=== PATIENT | female | born 1940 | race Caucasian/White ===

== ENCOUNTER 2020-02-16 12:20 | Inpatient (IN) | payer MEDICARE, OTHER ==
[~2020-02-16] VITALS: Ht 152.4 cm; Wt 68.0 kg
[~2020-02-16 12:20] MED LIST: CLON0.2T MT; EXEN5PEN2 SQ; GLIP5TAB13 PO
--- NOTE | 2020-02-16 12:20 | NUR ---
PT SENT BY C/O R LOWER EXTREMITY CELLULITIS. PT IS AAOX4, NOT IN RESPIRATORY DISTRESS, HOOKED TO MONITOR, KEPT RESTED AND COMFORTABLE. WILL CONTINUE TO MONITOR.
--- NOTE | 2020-02-16 12:33 | NUR ---
PT SEEN AND EXAMINED BY .
--- NOTE | 2020-02-16 12:40 | NUR ---
IV LINE ESTABLISHED BLOOD DRAWN AND SENT TO LAB.
--- NOTE | 2020-02-16 12:43 | NUR ---
WOUND CULTURE SPECIMEN OBTAINED AND SENT TO LAB.
[2020-02-16 12:46] LABS: BASOPHILS % (AUTO) 0.5 % (0.0-2.0); HEMATOCRIT 41 % (33-45); HEMOGLOBIN 13.3 g/dL (11.5-14.8); LYMPHOCYTES # (AUTO) 2.6 /CMM (0.8-4.8); LYMPHOCYTES % (AUTO) 29.6 % (20.0-44.0); MEAN CORPUSCULAR HGB CONC 33 g/dl (31.0-36.0); MEAN CORPUSCULAR VOLUME 93 fL (82-100); MONOCYTES # (AUTO) 0.5 /CMM (0.1-1.30); MONOCYTES % (AUTO) 5.2 % (2.0-12.0); NEUTROPHILS # (AUTO) 5.6 /CMM (1.8-8.9); NEUTROPHILS % (AUTO) 63.7 % (43.0-81.0); PLATELET COUNT (AUTO) 238 /CMM (150-450); RED BLOOD CELL COUNT(AUTO) 4.34 MIL/uL (4.0-5.2); WHITE BLOOD COUNT (AUTO) 8.8 K/uL (4.3-11.0)
--- NOTE | 2020-02-16 12:51 | NUR ---
COVID SPECIMEN OBTAINED AND SENT TO LAB.
--- NOTE | 2020-02-16 12:54 | NUR ---
PRINCIPAL ARCHITECTURAL FIRM AT BEDSIDE FOR XRAY.
[2020-02-16] MEDS ORDERED: PIPERACILLIN /TAZOBACTAM 3.375 G in IV D5W 50 ML IV ONE (13:00)
[2020-02-16] MEDS ORDERED: VANCOMYCIN 1 GM in IV D5W 250 ML IV ONE (13:00)
--- NOTE | 2020-02-16 13:00 | NUR ---
PAGED DR. CAPONE.
[2020-02-16 13:02] LABS: ALANINE AMINOTRANSFERASE 25 U/L (12-78); ALBUMIN 3.7 g/dL (3.4-5.0); ALKALINE PHOSPHATASE 57 U/L (46-116); ASPARTATE AMINOTRANSFERASE 17 U/L (15-37); BILIRUBIN,DIRECT 0.1 mg/dL (0.0-0.2); BILIRUBIN,TOTAL 0.5 mg/dL (0.2-1.0); CALCIUM, SERUM 9.6 mg/dL (8.5-10.1); CARBON DIOXIDE 26 mmol/L (21-32); CHLORIDE 105 mmol/L (98-107); CREATININE 0.7 mg/dL (0.6-1.3); GLUCOSE 131 mg/dL (74-106); POTASSIUM 3.8 mmol/L (3.5-5.1); SODIUM SERUM 140 mmol/L (136-145); TOTAL PROTEIN, SERUM 7.5 g/dL (6.4-8.2); UREA NITROGEN, BLOOD 15 mg/dL (7-18)
--- NOTE | 2020-02-16 13:16 | NUR ---
CALLED NURSING SUP FOR M/S BED.
--- NOTE | 2020-02-16 13:52 | NUR ---
NURSING SUP GAVE M/S BED 327-2.
--- NOTE | 2020-02-16 13:56 | NUR ---
REPORT GIVEN TO MAAME HUTSON FOR DAVID.
[2020-02-16 14:30] VITALS: BP 177/86
--- NOTE | 2020-02-16 15:17 | NUR ---
RN ADMITTING NOTE Patient arrived around 1430 by gil. A/O x4, showing no signs of acute distress or SOB, saturating >95% on RA. Skin assessed, photos taken and placed in chart. RLE edema and redness present, bilateral pulses present, patient able to move lower extremities. VS BP 177/86 HR71 T 97.3F RR 18. Patient has no complaints of pain at this time. Patient's family will bring medication list later this evening. Called Dr. Hutchinson and received telephone orders. Orders repeated back to MD and will carry out orders. Charge nurse made aware. Patient remains stable, bed is in lowest position, side rails x3 in upright position, call light is within reach, fall safety and aspiration precautions enforced. Will continue with admitting process. 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
[2020-02-16] MEDS ORDERED: VANCOMYCIN HCL 1 GM in IV D5W 260 ML IV ONE (15:30)
[2020-02-16] MEDS ORDERED: DEXTROSE 50%-WATER 50 ML DISP.SYRIN IV PRN (15:30)
[2020-02-16] MEDS ORDERED: *INSULIN REGULAR(HUMULIN R)HUM 100 UNIT/ML VIAL SQ PRN (15:30)
[2020-02-16 16:00] VITALS: BP 143/66
[2020-02-16] MEDS ORDERED: BUMETANIDE (1 MG) 1 MG TABLET PO ONE ×2 (16:00→21:00)
[2020-02-16] MEDS: NIFEdipine XL (30MG) 30 MG TAB PO SCH (16:09)
[2020-02-16 16:16] LABS: MAGNESIUM 1.9 mg/dL (1.8-2.4); THYROID STIMULATING HORMONE 1.274 uIU/mL (0.358-3.74)
[2020-02-16 16:43] VITALS: BP 143/66
[2020-02-16] MEDS: BLOOD SUGAR DIAGNOSTIC 1 EACH STRIP VI SCH ×2 (17:20→21:19)
[2020-02-16] MEDS: INSULIN REGULAR, HUMAN 100 UNIT/ML 3 ML VIAL SQ PRN ×2 (17:20→21:11)
--- NOTE | 2020-02-16 17:21 | NUR ---
RN NOTE Non-admin insulin per protocol. BS 100.
--- NOTE | 2020-02-16 18:00 | NUR ---
RN NOTE Patient's brought home medications. Given to med-recon nurse Sofia, and meds brought to pharmacy.
[2020-02-16] MEDS ORDERED: CLOP75TA15 MT (18:07)
[2020-02-16] MEDS ORDERED: CAPT50TA3 PO (18:07)
[2020-02-16] MEDS ORDERED: TYL2T MT (18:07)
[2020-02-16] MEDS ORDERED: GABA-532 MT (18:07)
[2020-02-16] MEDS ORDERED: GLIM2TAB31 PO (18:07)
--- NOTE | 2020-02-16 18:11 | NUR ---
RN CLOSING NOTE Patient is resting in bed, A/O x4, showing no signs of acute distress or SOB, stable on RA. IV line in the right hand #18g is clean and intact flushing well s/l. RLE elevated. All patient needs met, all due medications given, patient kept clean and dry throughout shift, fall safety and aspiration precautions enforced. Will endorse to rn night for DAVID.
[2020-02-16 18:37] LABS: APPEARANCE,URINE CLEAR (CLEAR); BILIRUBIN,URINE NEGATIVE (NEGATIVE); BLOOD, URINE TRACE Ery/uL (NEGATIVE); COLOR,URINE YELLOW (YELLOW); KETONES,URINE NEGATIVE (NEGATIVE); LEUKOCYTE ESTERASE ,URINE NEGATIVE (NEGATIVE); NITRITE, URINE NEGATIVE (NEGATIVE); PH,URINE 5.5 (5.0-8.0); PROTEIN,URINE NEGATIVE (NEGATIVE); UGLUCOSE NEGATIVE (NEGATIVE); UROBILINOGEN,URINE 0.2 EU/dL (0.2)
[2020-02-16 18:43] LABS: BACTERIA,URINE None seen /HPF (None Seen); WBC,URINE 0-2 /HPF (0-3)
[2020-02-16 20:00] VITALS: BP 136/75
[2020-02-16] MEDS ORDERED: BUMETANIDE (1 MG) 1 MG TABLET PO SCH (21:00)
[2020-02-16 21:40] VITALS: BP 136/75
--- NOTE | 2020-02-16 21:49 | NUR ---
MS/RN OPENING NOTE Patient awake in bed, A/O x4, ambulatory. Breathing even, clear, unlabored, on room air satting 95%. No signs of acute distress or SOB. Skin is warm, pink, dry, appropriate for ethnicity. Redness present on right lower extremity. Bilateral lower extremity non-pitting edema present. Numbness noted in bilateral toes. Patient denies pain. Afebrile. Bowel sounds normoactive, in all quadrants. Abdomen soft, round, non-distended. Patient void via BRP, clear yellow urine. IV site right hand 18g, patent and intact, saline locked. No signs of redness or infiltration. Bed in low position, wheels locked, side rails up x2, call light within reach.
[2020-02-16] MEDS ORDERED: CEFTRIAXONE 1 G VIAL ONE (23:26)
[2020-02-16] MEDS: CEFTRIAXONE 2 G in IV D5W 100 ML IV SCH (23:30)
[2020-02-17] MEDS: VANCOMYCIN HCL 0.75 GM in IV D5W 250 ML IV SCH ×2 (01:05→13:10)
--- NOTE | 2020-02-17 05:07 | NUR ---
MS/RN CLOSING NOTE Patient asleep in bed, A/O x4, ambulatory. Breathing even, clear, unlabored, on room air satting 95%. No signs of acute distress or SOB. Skin is warm, pink, dry, appropriate for ethnicity. Bowel sounds normoactive, in all quadrants. Abdomen soft, round, non-distended. No bowel movement this shift. Patient void via BRP x3, clear yellow urine. IV site right hand 18g, patent and intact, saline locked. No signs of redness or infiltration. All medications administered as ordered. Bed in low position, wheels locked, side rails up x2, call light within reach. Will endorse to oncoming nurse.
--- NOTE | 2020-02-17 05:49 | NUR ---
MS/RN NOTE Patient complaint of pain in right leg level 9, unable to sleep. Notified hospitalist for pain medication order. New med order for toradol 10mg PO once. Overrided eMar allergy conflict per hospitalist. MD is aware that patient is allergic to codeine and aspirin. Will continue to monitor.
[2020-02-17] MEDS ORDERED: KETOROLAC TROMETHAMINE 10 MG TABLET PO PRN (06:00)
[2020-02-17] MEDS: INSULIN REGULAR, HUMAN 100 UNIT/ML 3 ML VIAL SQ PRN ×3 (06:27→21:15)
[2020-02-17] MEDS: BLOOD SUGAR DIAGNOSTIC 1 EACH STRIP VI SCH ×4 (06:32→21:13)
[2020-02-17 07:06] LABS: BASOPHILS # (AUTO) 0.1 /CMM (0.0-0.2); BASOPHILS % (AUTO) 0.9 % (0.0-2.0); HEMATOCRIT 42 % (33-45); HEMOGLOBIN 14.1 g/dL (11.5-14.8); LYMPHOCYTES # (AUTO) 1.6 /CMM (0.8-4.8); LYMPHOCYTES % (AUTO) 21.6 % (20.0-44.0); MEAN CORPUSCULAR HGB CONC 33 g/dl (31.0-36.0); MEAN CORPUSCULAR VOLUME 91 fL (82-100); MONOCYTES # (AUTO) 0.5 /CMM (0.1-1.30); MONOCYTES % (AUTO) 6.5 % (2.0-12.0); NEUTROPHILS # (AUTO) 5.1 /CMM (1.8-8.9); PLATELET COUNT (AUTO) 247 /CMM (150-450); RED BLOOD CELL COUNT(AUTO) 4.65 MIL/uL (4.0-5.2); WHITE BLOOD COUNT (AUTO) 7.3 K/uL (4.3-11.0)
--- NOTE | 2020-02-17 07:10 | NUR ---
M/S RN OPENING NOTES RECEIVED PT ON BED, A/OX4, RESPONSIVE TO ALL STIMULI. RESPIRATION EVEN AND NON LABORED WITH NO ACUTE RESPIRATORY DISTRESS, ON RA. ABD SOFT AND NON DISTENDED WITH ACTIVE BOWEL SOUNDS. PT C/O 9/10 PAIN ON BLE, ELEVATE TOLERATED, EDEMA +1, MD TO CALL FOR NEW ORDER. SKIN WARM TO TOUCH AND DRY. IV SITE AT RIGHT HAND PATENT IN FLUSHING, NO S/SX OF INFILTRATION. CALL LIGHT WITHIN REACH, BED IN LOW LOCKED POSITION, SR X2 UP FOR SAFETY, WILL CONTINUE TO MONITOR CARE
[2020-02-17 07:37] LABS: CALCIUM, SERUM 9.2 mg/dL (8.5-10.1); CREATININE 0.7 mg/dL (0.6-1.3); POTASSIUM 3.3 mmol/L (3.5-5.1)
[2020-02-17 08:12] VITALS: BP 131/76
[2020-02-17] MEDS: BUMETANIDE (1 MG) 1 MG TABLET PO SCH (08:44)
[2020-02-17] MEDS: NIFEdipine XL (30MG) 30 MG TAB PO SCH (08:44)
[2020-02-17] MEDS: ENALAPRIL MALEATE (5 MG) 5 MG TABLET PO SCH (08:45)
[2020-02-17] MEDS: ENOXAPARIN SODIUM 40 MG/0.4 ML DISP.SYRIN SQ SCH (08:48)
--- NOTE | 2020-02-17 08:53 | NUR ---
M/S RN NOTES PT SEEN AND EVALUATED BY DR. CAPONE. OBTAINED NEW ORDER FOR PAIN MEDICATION - TYLENOL ES 500 MG TAB PO Q6 PRN AND NORCO 5/325 MG TAB PO Q6 PRN. ORDER READ BACK NOTED AND CARRIED OUT. MD AWARE OF ALLERGIES. WILL CONTINUE TO MONITOR CARE
[2020-02-17] MEDS ORDERED: HYDROCODONE/APAP 5/325MG TABLET PO PRN (09:00)
[2020-02-17] MEDS ORDERED: ACETAMINOPHEN ES 500 MG TABLET PO PRN (09:00)
[2020-02-17] MEDS ORDERED: CLONIDINE HCL 0.1MG/24H PTWK 1 EA PATCH TD SCH (09:00)
[2020-02-17] MEDS ORDERED: NIFEdipine XL (30MG) 30 MG TAB PO SCH (09:00)
[2020-02-17] MEDS ORDERED: POTASSIUM CHLORIDE 10 MEQ/50 ML PREMIXED IVPB FOR PERIPHERAL LINE IV ONE (10:30)
[2020-02-17] MEDS ORDERED: ALPRAZOLAM 0.25 MG TABLET PO PRN (10:30)
[2020-02-17] MEDS ORDERED: POTASSIUM CHLORIDE 20 MEQ TAB.PRT.SR PO SCH (10:30)
--- NOTE | 2020-02-17 10:47 | NUR ---
M/S RN NOTES CLARIFICATION OF ORDER KDUR 20 MEQ TAB PO AND IV KCL 10 MEQ TO GIVE BOTH PER NEPHRO , DR. MORRISON. POTASSIUM LEVEL TODAY 3.3, PT C/O CRAMPING TOO/ WILL MONITOR
[2020-02-17] MEDS: GABAPENTIN 100 MG CAPSULE PO SCH ×3 (10:49→16:35)
--- NOTE | 2020-02-17 10:55 | NUR ---
M/S RN NOTES PT PICKED UP VIA W/C FOR X-RAY
[2020-02-17] MEDS ORDERED: POTASSIUM CL. PREMIX PERIPHER. 50 ML IV SCH (11:00)
--- NOTE | 2020-02-17 11:50 | NUR ---
M/S RN NOTES PT RETURNED TO THE FLOOR.
[2020-02-17 16:06] VITALS: BP 105/54
--- NOTE | 2020-02-17 18:57 | NUR ---
M/S RN CLOSING NOTES PT A/OX4. NO PRESENCE OF ACUTE RESPIRATORY DISTRESS. LBM TODAY. SKIN WARM TO TOUCH AND DRY, NO NEW OPEN SKIN BREAKDOWN. DENIES PAIN AND DISCOMFORT. IV SITE AT LEFT AC PATENT IN FLUSHING. ALL CONCERNS ATTENDED. BED IN LOW LOCKED POSITION, SRX2 UP FOR SAFETY, CALL LIGHT WITHIN REACH. ENDORSED CARE TO NEXT SHIFT
--- NOTE | 2020-02-17 19:36 | NUR ---
MS MAAME OPEN NOTES PATIENT IS RESTING IN BED. ON RA, NO SOB/ ACUTE RESPIRATORY DISTRESS NOTED. IV IN L AC #22G IS PATENT AND INTACT. APPEARS COMFORTABLE/ NO COMPLAINTS OF PAIN AT THE MOMENT. BED IS IN LOWEST LOCKED POSITION WITH SIDE RAILS UP X3, SEMI FOWLERS. CALL LIGHT IS WITHIN REACH. WILL CONTINUE TO MONITOR.
[2020-02-17 20:00] VITALS: BP 107/57
[2020-02-17] MEDS: CEFTRIAXONE 2 G in IV D5W 100 ML IV SCH (22:33)
[2020-02-18] MEDS: VANCOMYCIN HCL 0.75 GM in IV D5W 250 ML IV SCH ×2 (00:37→13:00)
[2020-02-18] MEDS: INSULIN REGULAR, HUMAN 100 UNIT/ML 3 ML VIAL SQ PRN ×4 (06:48→21:30)
[2020-02-18] MEDS: BLOOD SUGAR DIAGNOSTIC 1 EACH STRIP VI SCH ×4 (06:48→21:13)
--- NOTE | 2020-02-18 07:03 | NUR ---
MS RN CLOSE NOTES PATIENT IS LAYING IN BED. A/O X4. ON RA, NO SOB/ ACUTE RESPIRATORY DISTRESS NOTED. IV IN LEFT AC #22G IS PATENT AND INTACT. ALL ACCUCHECKS DONE. APPEARS COMFORTABLE/ NO COMPLAINTS OF PAIN AT THE MOMENT. PATIENT IS ABLE TO AMBULATE. BED IS IN LOWEST LOCKED POSITION WITH SIDE RAILS UP X3, SEMI FOWLERS. CALL LIGHT IS WITHIN REACH. WILL ENDORSE TO AM NURSE.
--- NOTE | 2020-02-18 07:25 | NUR ---
MS RN OPENING NOTES PATIENT IS RESTING IN BED. A/O X4. ON RA, NO SOB/ ACUTE RESPIRATORY DISTRESS NOTED. IV IN L AC #22 INTACT, PATENT AND FLUSHED. NO COMPLAINTS OF PAIN AT THE MOMENT. SAFETY MEASURES OBSERVED. CALL LIGHT WITHIN REACH. BED LOCKED AND IN LOWEST POSITION WITH SIDE RAILS UP X3, SEMI FOWLERS. WILL CONTINUE TO MONITOR.
[2020-02-18 08:00] VITALS: BP 122/61
[2020-02-18] MEDS: GABAPENTIN 100 MG CAPSULE PO SCH ×3 (08:26→17:06)
[2020-02-18] MEDS: BUMETANIDE (1 MG) 1 MG TABLET PO SCH (08:26)
[2020-02-18] MEDS: NIFEdipine XL (30MG) 30 MG TAB PO SCH (08:27)
[2020-02-18] MEDS: POTASSIUM CHLORIDE 20 MEQ TAB.PRT.SR PO SCH (08:27)
[2020-02-18 08:30] LABS: CALCIUM, SERUM 8.1 mg/dL (8.5-10.1); CREATININE 1.1 mg/dL (0.6-1.3); POTASSIUM 3.4 mmol/L (3.5-5.1)
[2020-02-18] MEDS: ENOXAPARIN SODIUM 40 MG/0.4 ML DISP.SYRIN SQ SCH (08:36)
[2020-02-18] MEDS: ENALAPRIL MALEATE (5 MG) 5 MG TABLET PO SCH (09:17)
[2020-02-18 16:00] VITALS: BP 118/61
[2020-02-18] MEDS ORDERED: POTASSIUM CHLORIDE 20 MEQ TAB.PRT.SR PO ONE (16:30)
--- NOTE | 2020-02-18 19:37 | NUR ---
MS RN CLOSING NOTES PATIENT REMAINS IN BED. A/O X4. ON RA, NO SOB/ ACUTE RESPIRATORY DISTRESS NOTED. IV IN L AC #22 INTACT, PATENT AND FLUSHED. NO COMPLAINTS OF PAIN AT THE MOMENT. ALL MEDS GIVEN ORDERED. NEEDS ATTENDED. SAFETY MEASURES OBSERVED. CALL LIGHT WITHIN REACH. BED LOCKED AND IN LOWEST POSITION WITH SIDE RAILS UP X3, SEMI FOWLERS. WILL ENDORSE TO REFRIGERATION MANAGER FOR DAVID.
[2020-02-18 20:00] VITALS: BP 102/51
--- NOTE | 2020-02-18 20:00 | NUR ---
MS/RN OPENING NOTES RECEIVED PATIENT IN BED, RESTING AND ABLE TO VERBALIZE NEEDS, ON ROOM AIR AND CAN AMBULATE WITH SUPERVISION PATIENT HAS RIGHT LEG CELLULITIS, NO PAIN AT THIS TIME, PATIENT REPORTED TOLERABLE , SKIN WARM TO TOUCH, BED LOCKED, BELONGINGS WITHIN REACH, RECEIVED ENDORSEMENT FROM AM RN FOR DAVID, IV SITE ON LEFT AC PATENT. WILL MONITOR.
[2020-02-18] MEDS: CEFTRIAXONE 2 G in IV D5W 100 ML IV SCH (22:01)
--- NOTE | 2020-02-18 22:08 | NUR ---
blood sugar check at 145 insulin coverage given per sliding scale.
--- NOTE | 2020-02-19 06:22 | NUR ---
327-2 MS/RN NOTES PATIENT ABLE TO SLEEP DURING THE NIGHT, ATTENDED ALL NEEDS, IV ANTIBIOTIC INFUSED WITH NO S/S OF ADVERSE REACTION. ASSISTED TO BATHROOM FOR SUPERVISION, BED LOCKED, CALL LIGHTS WITHIN REACH. WILL ENDORSE TO AM RN FOR DAVID.
[2020-02-19] MEDS: BLOOD SUGAR DIAGNOSTIC 1 EACH STRIP VI SCH ×4 (06:25→21:24)
--- NOTE | 2020-02-19 06:30 | NUR ---
blood sugar check at 124
--- NOTE | 2020-02-19 07:30 | NUR ---
RN MS NOTES PT IN BED, AWAKE, ALERT AND ORIENTED, NO COMPLAINT OF PAIN, BREATHING PATTERN NORMAL, CALL LIGHT WITHIN REACH, KEPT COMFORTABLE, NEEDS ATTENDED, AMBULATES WITH STEADY GAIT.
[2020-02-19 08:00] VITALS: BP 143/91
[2020-02-19 09:01] LABS: ALBUMIN 3.1 g/dL (3.4-5.0); BILIRUBIN,TOTAL 0.3 mg/dL (0.2-1.0); CALCIUM, SERUM 8.1 mg/dL (8.5-10.1); CREATININE 1.2 mg/dL (0.6-1.3); MAGNESIUM 2.1 mg/dL (1.8-2.4); PHOSPHORUS 2.8 mg/dL (2.5-4.9); POTASSIUM 4.6 mmol/L (3.5-5.1); TOTAL PROTEIN, SERUM 6.8 g/dL (6.4-8.2)
[2020-02-19] MEDS: POTASSIUM CHLORIDE 20 MEQ TAB.PRT.SR PO SCH (09:22)
[2020-02-19] MEDS: GABAPENTIN 100 MG CAPSULE PO SCH ×3 (09:22→16:33)
[2020-02-19] MEDS: BUMETANIDE (1 MG) 1 MG TABLET PO SCH (09:22)
[2020-02-19] MEDS: ENALAPRIL MALEATE (5 MG) 5 MG TABLET PO SCH (09:23)
[2020-02-19] MEDS: NIFEdipine XL (30MG) 30 MG TAB PO SCH (09:23)
[2020-02-19] MEDS: ENOXAPARIN SODIUM 40 MG/0.4 ML DISP.SYRIN SQ SCH (09:25)
[2020-02-19] MEDS: VANCOMYCIN HCL 0.75 GM in IV D5W 250 ML IV SCH ×3 (12:45)
--- NOTE | 2020-02-19 14:00 | NUR ---
RN MS NOTES PT IN BED, RESTING, DENIES PAIN, NOT IN DISTRESS, AMBULATES TO THE BATHROOM NEEDED, CALL LIGHT WITHIN REACH, NEEDS ATTENDED.
[2020-02-19] MEDS ORDERED: LEVOFLOXACIN 500 MG /D5W 100ML 500 MG in PREMIX 1 EA IV ONE (18:00)
--- NOTE | 2020-02-19 18:22 | NUR ---
327 -2 MS END SHIFT NOTES PATIENT IN BED with HOB elevated. Alert and oriented X4. ON RA, NO SOB, NO ACUTE RESPIRATORY DISTRESS NOTED. IV IN L AC #22 INTACT, PATENT AND FLUSHED. NO COMPLAINTS OF PAIN AT THE MOMENT. ALL MEDS GIVEN ORDERED. NEEDS ATTENDED. SAFETY MEASURES OBSERVED. CALL LIGHT WITHIN REACH. BED LOCKED AND IN LOWEST POSITION WITH SIDE RAILS UP X2.
--- NOTE | 2020-02-19 19:50 | NUR ---
MS RN NOTE: PATIENT RESTING IN BED, NO ACUTE DISTRESS NOTED. BREATHING EVEN AND UNLABORED, NO SOB NOTED. IV TO LAC IN PLACE. NO S/S OF HYPER/HYPOGLYCEMIA NOTED. BED LOCKED AND IN LOWEST POSITION, CALL LIGHT IN REACH. WILL CONTINUE TO MONITOR.
[2020-02-19 20:00] VITALS: BP 102/53
--- NOTE | 2020-02-19 22:15 | NUR ---
MS RN NOTE: PATIENT BLOOD SUGAR LEVEL 146MG/DL, PATIENT TO RECEIVE 2 UNITS OF INSULIN PER SLIDING SCALE. NO S/S OF HYPER/HYPOGLYCEMIA NOTED. SNACKS PROVIDE. WILL CONTINUE TO MONITOR.
[2020-02-20] MEDS ORDERED: VANCOMYCIN 500 MG in IV D5W 100 ML IV SCH (01:00)
[2020-02-20 06:52] LABS: CREATININE 1.3 mg/dL (0.6-1.3); POTASSIUM 4.6 mmol/L (3.5-5.1)
--- NOTE | 2020-02-20 06:55 | NUR ---
MS RN NOTE: PATIENT RESTING IN BED, NO ACUTE DISTRESS NOTED. BREATHING EVEN AND UNLABORED, NO SOB NOTED. IV TO LAC IN PLACE. NO S/S OF HYPER/HYPOGLYCEMIA NOTED. BED LOCKED AND IN LOWEST POSITION, CALL LIGHT IN REACH. WILL ENDORSE TO DAY NURSE TO CONTINUE WITH PLAN OF CARE. Addendum: 02/20/20 at 0705 by LEXI CONTRERAS RN PATIENT BLOOD SUGAR LEVEL 130MG/DL, NO INSULIN NEEDED PER SLIDING SCALE.
[2020-02-20] MEDS: BLOOD SUGAR DIAGNOSTIC 1 EACH STRIP VI SCH ×2 (06:56→11:46)
--- NOTE | 2020-02-20 07:30 | NUR ---
ms rn received on bed, awake,alert,oriented x4,aradian speaking only, not in any form of distress, respirations even and unlabored,no sob noted,denies pain at this timer,all needs attended.
[2020-02-20 08:00] VITALS: BP 130/68
--- NOTE | 2020-02-20 08:30 | NUR ---
ms rn was seen by dr. michael barros/ orders made and carried out.
[2020-02-20] MEDS: BUMETANIDE (1 MG) 1 MG TABLET PO SCH (08:55)
[2020-02-20] MEDS: POTASSIUM CHLORIDE 20 MEQ TAB.PRT.SR PO SCH (08:55)
[2020-02-20] MEDS: GABAPENTIN 100 MG CAPSULE PO SCH ×2 (08:55→11:59)
[2020-02-20] MEDS: ENALAPRIL MALEATE (5 MG) 5 MG TABLET PO SCH (08:55)
[2020-02-20] MEDS: NIFEdipine XL (30MG) 30 MG TAB PO SCH (08:55)
[2020-02-20] MEDS: ENOXAPARIN SODIUM 40 MG/0.4 ML DISP.SYRIN SQ SCH (08:56)
--- NOTE | 2020-02-20 10:00 | NUR ---
ms rn patient is for d/c today.
[2020-02-20] MEDS: INSULIN REGULAR, HUMAN 100 UNIT/ML 3 ML VIAL SQ PRN (11:50)
--- NOTE | 2020-02-20 15:00 | NUR ---
MS RN NOTES PATIENT RECEIVED IN BED FROM MAAME STONE, NO ACUTE DISTRESS NOTED. BREATHING EVEN AND UNLABORED, AND NO SOB NOTED. SAFETY PRECAUTIONS IMPLEMENTED WITH THE BED LOCKED AND IN LOWEST POSITION, CALL LIGHT IN REACH. WILL CONTINUE TO MONITOR PATIENT.
--- NOTE | 2020-02-20 15:00 | NUR ---
ms rn report given to Clarisa for donna.
[2020-02-20 16:00] VITALS: BP 127/67
--- NOTE | 2020-02-20 16:14 | NUR ---
ROAD OILING TRUCK DRIVER NOTES PATIENT ALERT AND ORIENTED X 4 FRENCH SPEAKING. ON ROOM AIR WITH NO SIGNS OF RESPIRATORY DISTRESS PRESENT AT THIS TIME WITH EVEN NON-LABORED BREATHING, AND NO SOB. PATIENT SKIN KEPT CLEAN, WARM AND DRY. SKIN ASSESSMENT DONE. IV ACCESS REMOVED WITH CATHETER TIP INTACT AND APPLIED PRESSURE TO SITE. PATIENT ACCOUNTED FOR ALL BELONGINGS, COUNTED MONEY AT BEDSIDE WITH PATIENT AND CASANDRA ALMAGUER. MEDICATIONS ACCOUNTED FOR WELL. EDUCATED PROVIDED TO PATIENT. VITAL SIGNS STABLE. ID BAND REMOVED. PATIENT LEFT UNIT VIA WHEELCHAIR AND LEFT THE HOSPITAL IN A PRIVATE CAR.
[2020-02-20] MEDS ORDERED: LEVOFLOXACIN 250 MG /D5W 50 ML 250 MG in PREMIX 1 EA IV SCH (18:00)
== END 2020-02-20 16:15 | disposition home health service (06) | DRG 603 ==
LOC: ER 12:30 → MED 14:07
PROVIDERS: ADMIT Family Medicine; ATTEND Family Medicine
DX: L03.115 Cellulitis of right lower limb (principal); E87.1 Hypo-osmolality and hyponatremia; N17.9 Acute kidney failure, unspecified; L03.116 Cellulitis of left lower limb; E11.42 Type 2 diabetes mellitus with diabetic polyneuropathy; I10 Essential (primary) hypertension; E87.6 Hypokalemia; Z88.5 Allergy status to narcotic agent; Z88.8 Allergy status to other drugs, medicaments and biological substances; Z79.84 Long term (current) use of oral hypoglycemic drugs; Z79.899 Other long term (current) drug therapy; B96.4 Proteus (mirabilis) (morganii) as the cause of diseases classified elsewhere; B96.89 Other specified bacterial agents as the cause of diseases classified elsewhere; G47.00 Insomnia, unspecified; M81.0 Age-related osteoporosis without current pathological fracture; M41.9 Scoliosis, unspecified; Z86.718 Personal history of other venous thrombosis and embolism; F41.9 Anxiety disorder, unspecified; G89.4 Chronic pain syndrome; H54.7 Unspecified visual loss; H91.90 Unspecified hearing loss, unspecified ear; I20.9 Angina pectoris, unspecified; T50.2X5A Adverse effect of carbonic-anhydrase inhibitors, benzothiadiazides and other diuretics, initial encounter; Y92.9 Unspecified place or not applicable
CPT/HCPCS: 36415; 72080-TC; 72170-TC; 73560-TC; 73610-TC; 80048-TC; 80053-TC; 80076-TC; 80202-TC; 81000-TC; 82962-TC; 83540-TC; 83605-TC; 83735-TC; 84100-TC; 84443-TC; 84484-TC; 85025-TC; 85652-TC; 87040-TC; 87070-TC; 87081-TC; 87186-TC; 97110-TC; 97116-TC; 97530-TC; 97535-TC; A4216; C9803-CS; G0378; J0696; J1650; J1815; J1956; J2543; J3370; J3480; J7040; J7060